=== PATIENT | female | born 1955 | race Caucasian/White ===

== ENCOUNTER 2016-12-15 15:43 | Emergency (ER) | payer OTHER ==
--- NOTE | ~2016-12-15 | CR72 ---
[facility] A Service [facility] RADIOLOGY TEXT RESULTS PATIENT: REJI BARBOZA LOCATION: SED : 54 UNIT #: [id number] AGE: [address]: Clark Christensen MD SEX: F ORDER DR: [id number] [address] [address] [id number] E MR#: [id number] Acc #: [id number] NAME: REJI BARBOZA. : 1955 SEX: F STUDY DATE/TIME: 12/15/2016 16:08 UNIT: SED ROOM: STUDY DESCRIPTION: CR Chest Single View Portable Attending Physician: Clark Christensen M.D. Ordering Physician: Clark Christensen M.D. Primary Care Physician: Andre Bruno M.D. MEDICAL IMAGING REPORT This report is preliminary unless electronic signature is present. EXAM Portable chest x-ray. DATE OF EXAM 12/15/2016 HISTORY Short of air. Cough. 1 week duration. Smoker 50 years. REPORT AP radiograph of the chest is presented. COMPARISON Most recent comparison chest radiograph 06/23/2014. There is a comparison CT chest dated 03/03/2015. FINDINGS No acute-appearing bony abnormality. Heart and mediastinum normal in size and contour. Lungs hyperinflated consistent with known underlying emphysema. Nodular density projecting over the right upper lung zone at approximately the posterior right fifth rib level is unchanged from CT examination 03/03/2015. The appearance most consistent with calcified or calcified granuloma. There is no clearly suspicious pulmonary nodule. No pleural effusion. No pneumothorax. No evidence of acute infectious or inflammatory disease. Dictated by... Burton Cortez M.D. THIS IS AN ELECTRONICALLY VERIFIED REPORT Burton Cortez M.D. at 12/16/2016 4:18 PM [facility] A Service [facility] RADIOLOGY TEXT RESULTS PATIENT: REJI BARBOZA LOCATION: SED : 54 UNIT #: [id number] AGE: [address]: Clark Christensen MD SEX: F ORDER DR: Ac TD: 12/15/2016 23:33 JOB #: [id number] MEDICAL IMAGING REPORT
--- NOTE | ~2016-12-15 | EKG ---
PATIENT: REJI BARBOZA UNIT #: [id number] Ventricular Rate: 69 BPM Atrial Rate: 69 BPM P-R Interval: 144 ms QRS Duration: 62 ms Q-T Interval: 378 ms QTC Calculation(Bezet): 405 ms P [place]: 73 degrees Calculated R [place]: 74 degrees Calculated T [place]: 69 degrees Diagnosis Line: Sinus rhythm with Premature supraventricular Diagnosis Line: complexes Diagnosis Line: Otherwise normal ECG Diagnosis Line: When compared with ECG of 23-JUN-2014 09:30, Diagnosis Line: Premature supraventricular complexes are now Diagnosis Line: Present Diagnosis Line: Confirmed by ALEXANDRA RESENDIZ MD ([id number]) on Diagnosis Line: 01/26/2017 7:02:33 AM INTERPRETING MD: CYNTHIA
[~2016-12-15 15:43] MED LIST: ALBUTEROL MININEB NEB; BREO ELLIPTA 21 EACH INH; CIPRO PO; DALIRESP500 MCG PO; DIFLUCAN PO; GUAIFENESIN LA600 M1 PO; LEVAQUIN PO; PREDNISONE PO; PROAIR HFA8.5 GM IH; PYRIDIUM PO; SPIRIVA18 MCG INH; SYMBICORT INH
[2016-12-15 15:54] LABS: ARTERIAL BLD GAS O2 SATURATION 92.1 % (90.0-100.0); ARTERIAL BLOOD GAS CARBOXY HB 6.1 %sat (0.0-9.0); ARTERIAL BLOOD GAS HCO3 30.7 mmol/L
[2016-12-15 15:56] LABS: ARTERIAL BLOOD GAS ALLEN TEST Y; ARTERIAL BLOOD GAS ART SITE LEFT RADIAL; ARTERIAL DRAW? YES
[2016-12-15 15:59] LABS: ALBUMIN SERUM 4.1 g/dL (3.5-5.0); ALKALINE PHOSPHATASE 100 U/L (32-92); ALT (SGPT) 9 U/L (10-40); AST (SGOT) 16 U/L (10-42); BILIRUBIN,TOTAL 0.3 mg/dL (0.2-2.0); BLOOD UREA NITROGEN 7 mg/dL (9-23); BUN/CREATININE RATIO 11.66; CALCIUM SERUM 8.6 mg/dL (8.4-10.2); CARBON DIOXIDE 33 mmol/L (22-31); CHLORIDE 100 mmol/L (100-111); CREATININE SERUM 0.6 mg/dL (0.6-1.4); GLOM FILT RATE Estimated ABOVE60 mL/min (>60); GLUCOSE FASTING 109 mg/dL (70-110); POTASSIUM 3.5 mmol/L (3.5-5.1); SODIUM 140 mmol/L (135-145)
[2016-12-15 16:07] LABS: BILIRUBIN, DIRECT <0.1 mg/dL (0.0-0.2); BILIRUBIN,INDIRECT 0.2 mg/dL (0.0-0.9)
[2016-12-15 16:10] LABS: BASOPHIL# 0.1 X10e3 (0-0.3); BASOPHIL% 1.2 % (0-2.5); EOSINOPHIL# 0.5 X10e3 (0-0.7); EOSINOPHIL% 5.8 % (0.0-7.0); HEMATOCRIT 42.8 % (35.0-45.0); HEMOGLOBIN 14.1 gm/dL (12.0-16.0); LYMPHOCYTE# 2.1 X10e3 (1.0-3.5); LYMPHOCYTE% 25.5 % (17.0-45.0); MEAN CELL VOLUME 91.1 FL (83-96); MEAN CORPUSCULAR HEMOGLOBIN 30.1 PG (28-34); MEAN PLATELET VOLUME 9.2 FL (6.5-11.5); MONOCYTE# 0.5 X10e3 (0-1.0); MONOCYTE% 5.9 % (3.0-12.0); NEUTROPHIL% 61.6 % (40-75); PLATELET COUNT 237 X10e3 (140-420); RED CELL DISTRIBUTION WIDTH 13.5 % (11.0-15.5); WHITE BLOOD COUNT 8.2 X10e3 (4.0-10.5)
[2016-12-15 16:13] LABS: DIFF IND NO
[2016-12-15 16:17] LABS: POC - CKMB <1.0 ng/mL (0.0-7.9); POC - MYOGLOBIN 37.1 ng/mL (0.0-169.0); POC - TROPONIN <0.05 ng/mL (<=0.05)
== END 2016-12-15 18:09 | disposition home or self-care (01) ==
LOC: SED 15:43
PROVIDERS: Emergency Medicine
DX: J44.1 Chronic obstructive pulmonary disease with (acute) exacerbation (principal); J20.9 Acute bronchitis, unspecified; J44.0 Chronic obstructive pulmonary disease with (acute) lower respiratory infection; F17.200 Nicotine dependence, unspecified, uncomplicated; Z90.710 Acquired absence of both cervix and uterus; Z98.890 Other specified postprocedural states; Z88.6 Allergy status to analgesic agent; Z79.899 Other long term (current) drug therapy
CPT/HCPCS: 36415; 36600; 71010; 80048; 80076; 82553; 82803; 83605; 83874; 84484; 85025; 85379; 87040; 93005; 94640; 96374; 99284; J2930

== ENCOUNTER 2017-05-22 13:31 | Emergency (ER) | payer OTHER ==
--- NOTE | ~2017-05-22 | CR127 ---
[facility] A Service of [facility] RADIOLOGY TEXT RESULTS PATIENT: REJI BARBOZA LOCATION: SED : 54 UNIT #: [id number] AGE: [address]: Radha Flores MD SEX: F ORDER DR: [id number] [address] [address] [id number] E MR#: [id number] Acc #: [id number] NAME: REJI BARBOZA. : 1955 SEX: F STUDY DATE/TIME: 05/22/2017 14:28 UNIT: SED ROOM: STUDY DESCRIPTION: CR Foot Complete Min 3 View Rt Attending Physician: Radha Flores M.D. Ordering Physician: Radha Flores M.D. Primary Care Physician: Andre Bruno M.D. MEDICAL IMAGING REPORT This report is preliminary unless electronic signature is present. EXAM Right foot 05/22/2017 INDICATIONS A 62-year-old female with history of trauma, fell 3 days ago top of the foot swelling and bruising. FINDINGS Three views of the right foot. No comparisons. FINDINGS The bones are osteopenic. No acute fracture. No significant soft tissue swelling. No retained opaque foreign body. IMPRESSION Osteopenia. No acute fracture Dictated by... Rolf Alvares M.D. THIS IS AN ELECTRONICALLY VERIFIED REPORT Rolf Alvares M.D. at 05/23/2017 5:18 PM Frank TD: 05/22/2017 21:02 JOB #: [id number] MEDICAL IMAGING REPORT Page 1 of 1
--- NOTE | ~2017-05-22 | CT57 ---
[facility] A Service of [facility] RADIOLOGY TEXT RESULTS PATIENT: REJI BARBOZA LOCATION: SED : 54 UNIT #: [id number] AGE: [address]: Radha Flores MD SEX: F ORDER DR: [id number] [address] [address] [id number] E MR#: [id number] Acc #: [id number] NAME: REJI BARBOZA. : 1955 SEX: F STUDY DATE/TIME: 05/22/2017 14:44 UNIT: SED ROOM: STUDY DESCRIPTION: CT Chest Wo Cont Attending Physician: Radha Flores M.D. Ordering Physician: Radha Flores M.D. Primary Care Physician: Andre Bruno M.D. MEDICAL IMAGING REPORT This report is preliminary unless electronic signature is present. EXAM CT chest without contrast DATE 05/22/2017 HISTORY 62-year-old female who fell 3 days ago, now complains of left rib pain. COPD. COMPARISON CT chest without contrast 03/03/2015. AP portable chest 12/15/2016. PROCEDURE 5 mm noncontrast axial images through the chest. Sagittal and coronal reformatted images were obtained. FINDINGS Severe emphysema. Chronic band-like scarring or fibrotic change within the lingular segment of the left upper lobe. Benign calcified granulomatous changes in the right upper lobe. Mild chronic scarring in the posterior lateral right apex. Subpleural noncalcified nodularity in the right upper lobe measured 4 mm and this is a stable finding since 03/03/2015. No new or suspicious pulmonary nodules are identified. There are old left fourth through seventh rib fractures anteriorly corresponding to a previous CT chest from 03/02/2016. No definite acute displaced left rib fractures identified. A few of the images are degraded by patient respiratory motion. No pathologic adenopathy. Trace pericardial effusion. No acute findings within the included upper abdomen. [facility] A Service [facility] RADIOLOGY TEXT RESULTS PATIENT: REJI BARBOZA LOCATION: SED : 54 UNIT #: [id number] AGE: [address]: Radha Flores MD SEX: F ORDER DR: IMPRESSION 1. No acute displaced left rib fracture is identified. There are old healed left fourth through seventh rib fractures, corresponding to the CT chest findings from 03/03/2015. 2. Severe emphysema. No acute airspace disease. 3. Stable 4 mm noncalcified right upper lobe pulmonary nodules since 03/03/2015 consistent with a benign finding. No further surveillance is warranted with respect to this nodule. 4. Densely calcified granulomatous changes in the right upper lobe. Dictated by... Betsy Chisholm M.D. THIS IS AN ELECTRONICALLY VERIFIED REPORT Betsy Chisholm M.D. at 05/23/2017 8:[address] [facility]/katya TD: 05/22/2017 22:21 JOB #: [id number] MEDICAL IMAGING REPORT Page 1 of 1
--- NOTE | ~2017-05-22 | EKG ---
PATIENT: REJI BARBOZA UNIT #: [id number] Ventricular Rate: 87 BPM Atrial Rate: 87 BPM P-R Interval: 128 ms QRS Duration: 74 ms Q-T Interval: 336 ms QTC Calculation(Bezet): 404 ms Calculated R [place]: 142 degrees Calculated T [place]: 136 degrees Diagnosis Line: Suspect improper lead positioning Diagnosis Line: Sinus rhythm with sinus arrhythmia Diagnosis Line: Repeat ECG Diagnosis Line: Confirmed by ALEXANDRA RESENDIZ MD ([id number]) on Diagnosis Line: 05/29/2017 10:52:24 PM INTERPRETING MD: CYNTHIA
--- NOTE | ~2017-05-22 | CT101 ---
[facility] A Service of [facility] RADIOLOGY TEXT RESULTS PATIENT: REJI BARBOZA LOCATION: SED : 54 UNIT #: [id number] AGE: [address]: Radha Flores MD SEX: F ORDER DR: [id number] [address] [address] [id number] E MR#: [id number] Acc #: [id number] NAME: REJI BARBOZA. : 1955 SEX: F STUDY DATE/TIME: 05/22/2017 14:41 UNIT: SED ROOM: STUDY DESCRIPTION: CT Maxillofacial Area Wo Cont Attending Physician: Radha Flores M.D. Ordering Physician: Radha Flores M.D. Primary Care Physician: Andre Bruno M.D. MEDICAL IMAGING REPORT This report is preliminary unless electronic signature is present. EXAM CT face without contrast DATE 05/22/2017 HISTORY Fell 3 days ago with nose and chin pain. COMPARISON Noncontrast CT head 05/22/2017 at 14:38. FINDINGS No acute displaced facial fracture is identified. The globes appear unremarkable. There is complete opacification of the left maxillary sinus. Remainder the paranasal sinuses appear clear. Temporomandibular joints are appropriately located. Mastoid air cells are clear. Imaged portion of the brain parenchyma is unremarkable. IMPRESSION 1. No acute facial fracture. 2. Complete left maxillary sinus opacification. Correlate for chronic sinusitis symptoms. Dictated by... Betsy Chisholm M.D. THIS IS AN ELECTRONICALLY VERIFIED REPORT Betsy Chisholm M.D. at 05/23/2017 8:56 AM H/to TD: 05/22/2017 21:46 [facility] A Service of [facility] RADIOLOGY TEXT RESULTS PATIENT: REJI BARBOZA LOCATION: SED : 54 UNIT #: [id number] AGE: [address]: Radha Flores MD SEX: F ORDER DR: JOB #: [id number] MEDICAL IMAGING REPORT Page 1 of 1
--- NOTE | ~2017-05-22 | CT71 ---
[facility] A Service of [facility] RADIOLOGY TEXT RESULTS PATIENT: REJI BARBOZA LOCATION: SED : 54 UNIT #: [id number] AGE: [address]: Radha Flores MD SEX: F ORDER DR: [id number] [place] [id number] E MR#: [id number] Acc #: [id number] NAME: REJI BARBOZA. : 1955 SEX: F STUDY DATE/TIME: 05/22/2017 14:38 UNIT: SED ROOM: STUDY DESCRIPTION: CT Head Wo Contrast Attending Physician: Radha Flores M.D. Ordering Physician: Radha Flores M.D. Primary Care Physician: Andre Bruno M.D. MEDICAL IMAGING REPORT This report is preliminary unless electronic signature is present. EXAM Head CT no contrast, 05/22/2017 HISTORY Head and facial pain 3 days after fall, striking head. FINDINGS This CT exam was performed with one or more of the following radiation dose reduction techniques: Automatic exposure control, adjustment of mA and/or kV according to patient size, and iterative reconstruction. There is left maxillary sinus atelectasis but the exam is otherwise normal. The brain is normal. There is no hemorrhage or mass or hydrocephalus, or extraaxial fluid collection and the extracranial soft tissues are normal. IMPRESSION There is left maxillary sinus atelectasis, but the exam is otherwise normal. Dictated by... Maik Gill M.D. THIS IS AN ELECTRONICALLY VERIFIED REPORT Maik Gill M.D. at 05/26/2017 4:54 PM TEV/psc TD: 05/22/2017 20:10 JOB #: [id number] MEDICAL IMAGING REPORT [facility] A Service of [facility] RADIOLOGY TEXT RESULTS PATIENT: REJI BARBOZA LOCATION: SED : 54 UNIT #: [id number] AGE: [address]: Radha Flores MD SEX: F ORDER DR: Page 1 of 1
[2017-05-22] MEDS ORDERED: CLARITIN10 M3 DOB (13:34)
[2017-05-22 14:27] LABS: BASOPHIL# 0.1 X10e3 (0-0.3); BASOPHIL% 1.3 % (0-2.5); EOSINOPHIL# 0.2 X10e3 (0-0.7); EOSINOPHIL% 1.8 % (0.0-7.0); HEMATOCRIT 42.4 % (35.0-45.0); HEMOGLOBIN 14.5 gm/dL (12.0-16.0); LYMPHOCYTE# 1.4 X10e3 (1.0-3.5); LYMPHOCYTE% 13.3 % (17.0-45.0); MEAN CELL VOLUME 89.1 FL (83-96); MEAN CORPUSCULAR HEMOGLOBIN 30.4 PG (28-34); MEAN CORPUSCULAR HGB CONC 34.1 g/dL (30-36); MEAN PLATELET VOLUME 9.3 FL (6.5-11.5); MONOCYTE# 0.6 X10e3 (0-1.0); MONOCYTE% 5.5 % (3.0-12.0); NEUTROPHIL# 8.5 X10e3 (1.5-7.1); NEUTROPHIL% 78.1 % (40-75); PLATELET COUNT 223 X10e3 (140-420); RED BLOOD COUNT 4.76 X10e (3.90-5.30); RED CELL DISTRIBUTION WIDTH 13.6 % (11.0-15.5); WHITE BLOOD COUNT 10.9 X10e3 (4.0-10.5)
[2017-05-22 14:31] LABS: DIFF IND NO
[2017-05-22 14:36] LABS: POC - CKMB 1.1 ng/mL (0.0-7.9)
[2017-05-22 14:37] LABS: POC - TROPONIN <0.05 ng/mL (<=0.05)
[2017-05-22 14:49] LABS: CALCIUM SERUM 8.8 mg/dL (8.4-10.2); CREATININE SERUM 0.6 mg/dL (0.6-1.4); POTASSIUM 3.8 mmol/L (3.5-5.1)
== END 2017-05-22 15:45 | disposition home or self-care (01) ==
LOC: SED 13:31
PROVIDERS: Student in an Organized Health Care Education/Training Program
DX: S00.83XA Contusion of other part of head, initial encounter (principal); S90.31XA Contusion of right foot, initial encounter; S20.211A Contusion of right front wall of thorax, initial encounter; J44.9 Chronic obstructive pulmonary disease, unspecified; F17.200 Nicotine dependence, unspecified, uncomplicated; W20.8XXA Other cause of strike by thrown, projected or falling object, initial encounter; Y92.009 Unspecified place in unspecified non-institutional (private) residence as the place of occurrence of the external cause
CPT/HCPCS: 36415; 70450; 70486; 71250; 73630; 80048; 82553; 84484; 85025; 93005; 99284